=== PATIENT | male | born 1995 | race Caucasian/White ===

== ENCOUNTER 2023-05-15 13:56 | Emergency (ER) | payer OTHER ==
[2023-05-15 14:05] VITALS: BP 120/68; PULSE 101; RESP 17; TEMP 98.6; BMI 25.7
[2023-05-15] MEDS ORDERED: ACETAMINOPHEN 325 MG TABLET (FP) PO ONE (14:56)
[2023-05-15] MEDS ORDERED: DIPHTH,PERTUSS(ACELL),TET 0.5 ML DISP.SYRIN IM ONE ×2 (14:56→15:03)
[2023-05-15] MEDS ORDERED: ACETAMINOPHEN 325 MG TABLET (FP) ONE (15:03)
== END 2023-05-15 15:58 | disposition home or self-care (01) ==
LOC: JERFT 13:56
PROC: 3E0234Z Introduction of Serum, Toxoid and Vaccine into Muscle, Percutaneous Approach (ICD-10-PCS; principal; 2023-05-15)
DX: S61.250A Open bite of right index finger without damage to nail, initial encounter (principal); M79.644 Pain in right finger(s); R22.31 Localized swelling, mass and lump, right upper limb; W53.21XA Bitten by squirrel, initial encounter
CPT/HCPCS: 73140-TC-RT-FY; 90471; 90715; 99283-25